=== PATIENT | female | born 1995 | race Caucasian/White ===

== ENCOUNTER 2019-02-17 03:48 | Inpatient (IN) ==
[2019-02-17] MEDS ORDERED: Naloxone 0.4 MG/ML INJ IVP PRN ×2 (03:58→08:38)
[2019-02-17] MEDS ORDERED: Metoclopramide 10 MG/2 ML VIAL IVP PRN (03:58)
[2019-02-17] MEDS ORDERED: Ondansetron 4 MG/2 ML VIAL IVP PRN ×2 (03:58→08:38)
[2019-02-17] MEDS ORDERED: *HR* Nalbuphine 10 MG/ML AMPUL IVP PRN (03:58)
[2019-02-17] MEDS ORDERED: Famotidine 20 MG/2 ML VIAL IVP PRN (03:58)
[2019-02-17] MEDS: miSOPROStol 25 MCG TABLET VG PRN ×2 (04:38→09:51)
[2019-02-17] MEDS: Ringers Solution, Lactated 1,000 ML IVC SCH ×4 (04:42→20:52)
[2019-02-17 04:53] LABS: Basophils % 0.2 %; Eosinophils # 0.1 K/mcL (0.0-0.6); Eosinophils % 0.5 %; Hematocrit 32.6 % (35.3-44.9); Hemoglobin 10.4 g/dL (11.5-15.4); Immature Granulocytes % 0.6 % (0-4); Lymphocytes % 19.6 %; Mean Corpuscular HGB Conc 31.9 g/dL (31.6-35.5); Mean Corpuscular Hemoglobin 25.9 pg (28.0-33.3); Mean Corpuscular Volume 81.3 fL (83.0-100.0); Mean Platelet Volume 11.7 fL (9.4-12.4); Monocytes # 0.7 K/mcL (0.0-1.3); Monocytes % 6.6 %; Neutrophils # 7.3 K/mcL (1.6-8.9); Platelet Count 259 K/mcL (140-400); Red Blood Count 4.01 M/mcL (3.82-4.97); Red Cell Distribution Width 15.9 % (11.5-14.5); Segmented Neutrophils % 72.5 %
--- NOTE | 2019-02-17 08:11 | OB/GYN History & Physical ---
Date of Encounter: 02/17/19 Time of Encounter: 08:07 Assessment and Plan (1) and not yet delivered in third trimester Current visit: Yes Status: Acute (2) 39 weeks gestation of Current visit: Yes Status: Acute (3) Elective induction of labor planned Current visit: Yes Status: Acute Patient was induced with a Bautista catheter and Cytotec, patient will be augmented with Pitocin if contractions space out. Plan is to anticipate normal spontaneous vaginal delivery History of Present Illness HPI: Ms. Jessica is a 23 year old female admitted to para 1 at 39-0/7 weeks who presented for induction of labor secondary with favorable cervix. Patient's had an uncomplicated course. Patient is wanting a tubal ligation paperwork has been signed however did advise that we will probably wait and do it at 6 weeks. The risks and benefits of the tubal had been previously explained to patient with failure rate of 3-5 per thousand with increased risk of ectopic if was to occur. She denies any leaking of fluid still having good movement is having occasional contractions. Patient is O+, rubella positive, GBS negative, Varicella positive Past Med Surg Social Fam HX - Past Medical History Source: patient, old records reviewed Medical history: no medical history Psychiatric history: no psych history - Past Surgical History Surgical History: no surgical history - Social History Smoking Status: Never smoker Smokeless Tobacco Status: No Alcohol use: none Drug use: none Occupational status: unemployed Current living situation: Home - Independent Activity Level: Independent ambulation Recent Out of Country Travel Within the Last 8 Weeks: No Exposure or Possible Exposure to Illness During Travel: No - Family History Mother Living Status: Still Living Hx Family Cardiac Disorders: No Hx Family Respiratory Disorders: No Hx Family Cancer: No Hx Family GI Disorders: No Hx Family Endocrine Disorder: No Hx Family Neuromuscular Disorders: No Hx Family Neurologic Disorders: No Hx Family HEENT Disorders: No Hx Family Autoimmune Disorders: No Hx Family Reproductive Disorders: No Hx Family Psychosocial Disorders: No Hx Family Medical Disorders: No - Additional Family History Additional family history: Family history noncontributory Obstetrical History - Pregnancies : 2 Para: 1 Livin Medications and Allergies Caplet 1 mg PO DAILY 11/05/18 [History] Allergy/AdvReac Type Severity Reaction Status Date / Time No Known Allergies Allergy Verified 02/17/19 04:08 Review of System OB All systems PM: reviewed and no additional remarkable complaints except as stated Exam - Constitutional Constitutional: well developed, well nourished, no acute distress, obese - HEENT HEENT: EOMI, PERRL, Mucus Membranes Moist - Neck Neck exam: full ROM - Lungs Respiratory exam: CTAB - Cardiovascular Cardiovascular exam: RRR - Abdomen Abdomen: Present: gravid ( heart tones 140s reactive occasional contractions seen) - Extremities Extremities exam: full ROM - Vagina Vagina: Present: normal moisture - Cervix Dilation: 2 Effacement: 80 Station: -1 (Bautista catheter placed 40 mL balloon inflated and 25 g of Cytotec previously placed vaginally) - Uterus Uterus exam: Present: normal size Results Result Diagrams: 02/17/19 04:14 Abnormal lab results Hgb 10.4 g/dL (11.5-15.4) L 02/17/19 04:14 Hct 32.6 % (35.3-44.9) L 02/17/19 04:14 MCV 81.3 fL (83.0-100.0) L 02/17/19 04:14 MCH 25.9 pg (28.0-33.3) L 02/17/19 04:14 RDW 15.9 % (11.5-14.5) H 02/17/19 04:14 All other labs normal. - VTE Reasons for not Prescribing Prophylaxis: Treatment not Indicated - Low risk for VTE
[2019-02-17] MEDS ORDERED: EPHEDrine 50 MG/ML VIAL IVP PRN (08:38)
[2019-02-17] MEDS ORDERED: *HR* FentaNYL (PF) 100 MCG/2 ML VIAL EP ONE (08:38)
[2019-02-17] MEDS ORDERED: Ropivacaine/PF 0.2% 20 ML VIAL EP ONE (08:38)
--- NOTE | 2019-02-17 08:44 | Anesthesia Evaluation PreOp ---
Date of Encounter: 02/17/19 Time of Encounter: 09:00 - Past History Planned Operation: BRODY Cardiac History: Denies any Significant Hx Pulmonary History: Denies Any Significant HX RETAIL RECEIVING CLERK History: Denies Any Significant HX Other Medical History: Denies Any Significant HX Anesthesia History: No Prior Anesthetic Complications, Past Anesthesia (Previous epidural, no family history of anesthetic complications.) : Yes Alcohol Use: none Drug use: none Medications and Allergies Caplet 1 mg PO DAILY 11/05/18 [History] Allergy/AdvReac Type Severity Reaction Status Date / Time No Known Allergies Allergy Verified 02/17/19 04:08 - Meds/Allergy Pre-op Review Medications Reviewed: Yes Allergies Reviewed: Yes Beta Blockers on Current Med List: No Anesthesia Results - Labs 02/17/19 04:14 Anesthesia Exam BP 121/75 P 99 R 16 T 97.2 Height: 5'5" Weight: 110.2kg NPO (# of Hours): 4 Pain Scale: 3 Pain Scale Used: Numeric (1 - 10) - HEENT Pupil (Motor): Pupils equal Mallampati: II Teeth: Normal Oral Opening: Greater than 3 - RETAIL RECEIVING CLERK LOC: Oriented RETAIL RECEIVING CLERK Motor: Normal RUE, Normal LUE, Normal RLE, Normal LLE, Normal Face RETAIL RECEIVING CLERK Sensory: Normal: RUE, LUE, RLE, LLE, Face - Cardiac Rhythm: Regular Murmur: None JVD: No Carotid Bruit: No - Pulmonary Breath Sounds: bilateral Clear Respiratory Effort: Symmetrical Anesthesia Assess/Plan ASA Score: 2 Level of consciousness: Cooperative, Oriented, Tranquil Anesthetic Plan: Epidural Autologous Blood: No Monitoring Plan: Standard Monitors Recovery Plan: Other
[2019-02-17] MEDS ORDERED: *HR* FentaNYL (PF) 100 MCG/2 ML VIAL ONE (14:32)
[2019-02-17] MEDS: Epidural Premix (fent/bupiv) 110 ML EP SCH ×2 (15:08→21:44)
--- NOTE | 2019-02-17 15:28 | Anesthesia Procedures ---
Date of Encounter: 02/17/19 Time of Encounter: 14:50 Procedures: Anesthesia - Epidural/Spinal Patient ID/Chart reviewed: Yes Patient examined: Yes OB Eval: Gestational age: 39 OB Eval: : 2 OB Eval: Hx Para: 1 OB Eval: Dilated at (cm): 4 OB Eval: Contractions: Non-stressed pattern Consent Obtained: Yes Supplemental Oxygen: None/Room Air Site Prep: Aseptic Technique, Sterile prep and drape, Povidone-Iodine 1% Patient position: upright Local Anesthetic: Lidocaine 1% Amount of Local Anesthetic used: 3 Touhy Needle Gauge: 18 Touhy Needle Depth (cm): 6 Catheter Depth at Skin (cm): 14 Test Dose (1.5% Lido + Epi): Volume given (mls): 3 Test Dose Result: Negative Loading Dose: Fentanyl (mcg): 100 Loading Dose: Other: Ropivicaine 0.2% 5ml, 3ml Normal saline Loading Dose Administered: Thru Catheter Infusion Med: 0.125% Bupivacaine w/ 2 mcg/ml Fentanyl Infusion Rate (mls/hr): [address]: Tegaderm, Tape Interspace Used: L3-L4 Loss of Resistance (LOKESH): Yes Blood: No CSF: No Paresthesia: No Procedure: BRODY placed 1st pass in upright position. LOKESH achieved with Normal saline. Catheter threaded with ease to 14cm at the skin. Test dose negative. Pt stated comfort following epidural bolus administration. VSS throughout. Vitals + FHT's: 1450 BP 150/90 P 119 R 18 1516 BP 150/80 P 102 R 16
--- NOTE | 2019-02-17 16:09 | OB Labor Progress Note ---
Date of Encounter: 02/17/19 Time of Encounter: 16:07 Labor Progress Note - Subjective Subjective: Patient resting comfortably with epidural in place. - Vital Signs Vital Signs: WNL - Cervix Cervix: 5-6/90/-1 - Heart Tones Heart Tones: FHR 120 bpm, moderate variability, no accels, no decels. - Axson Axson: Q 3-4 minutes - Interventions Interventions: SVE AROM for moderate amount of clear fluid. IUPC inserted for accurate contraction monitoring. - Plan Physician notified: Yes Physician notified details: Dr. Hurley notified of SVE & AROM Plan: Begin Pitocin augmentation when able Frequent position changes with peanut ball Insert FSE if needed for tracing difficulties Anticipate
[2019-02-17] MEDS ORDERED: Oxytocin 20 units/ LR 1000 mL 20 UNIT/1,000 ML BAG IVC ONE (16:47)
[2019-02-17] MEDS ORDERED: Acetaminophen 325 MG TABLET PO PRN ×2 (17:32→22:48)
--- NOTE | 2019-02-17 17:51 | OB Labor Progress Note ---
Date of Encounter: 02/17/19 Time of Encounter: 17:50 Labor Progress Note - Subjective Subjective: Patient still very comfortable with epidural not feeling contractions at this time. - Cervix Cervix: 6/90/-1 - Heart Tones Heart Tones: heart tones 140s reactive - [place]: Contractions every 3-4 minutes irregular will continue to increase Pitocin - Interventions Interventions: Continued increasing Pitocin plan is to anticipate vaginal delivery
--- NOTE | 2019-02-17 20:35 | OB Labor Progress Note ---
Date of Encounter: 02/17/19 Time of Encounter: 20:34 Labor Progress Note - Subjective Subjective: Patient still comfortable beginning to feel some vaginal pressure - Cervix Cervix: 7/80/+1 - Heart Tones Heart Tones: heart tones 140s reactive - [place]: Contractions every 2 minutes - Interventions Interventions: Continue current care anticipate vaginal delivery
--- NOTE | 2019-02-17 22:43 | OB/GYN Procedure Note ---
Delivery - Delivery Date: 02/17/19 Provider: Memo Hurley Intrapartum events: none Delivery induction: coello, misoprostol Delivery augmentation: rupture of membranes, pitocin Delivery monitor: external FHT, internal uterine Anesthesia: intravenous Quantitated Blood Loss: 100 - (s) Infant A Infant Delivery Date: 02/17/19 Delivery Time: 22:09 Presentation: vertex Position: ELEAZAR Route of delivery: Gender: Female Viability: Viable Pounds: 6 Ounces: 12 Weight Gram: 3.065 kg at 1 minute: 8 at 5 mins: 9 Shoulder Dystocia: not encountered Specimens collected: cord blood Placenta: spontaneous Cord: 3 umbilical vessels - Repair Episiotomy: none Laceration Description: Labial (right) - Complications Delivery complications: none Delivery comments: Patient is a 23-year-old 2 para 1 at 39-0/7 weeks who presented for induction of labor secondary to term with favorable cervix. Patient did require Coello catheter and Cytotec to get labor going catheter fell out approximately 4 hours later. Epidural was placed she was artificially ruptured clear fluid was noted she was 4-5 cm. Patient progressed slowly but appropriately patient became complete and pushed approximately 2 times delivering a viable female infant in left occiput anterior presentation at 2209. There was no nuchal cord, no meconium, the was bulb suctioned the abdomen. Apgars were 8 at 1 minute, 9 at 5 minutes, infant weight was 6 lbs. 12 oz. Placenta was delivered spontaneously 3 vessel cord, route sales manager Dr. Hurley, administrative assistant receptionist Celestino Mora OMS3, anesthesia epidural, estimated blood loss 100 mL. Perineum cervix and vagina was visualized intact she did have a right labial laceration repaired with 3-0 Vicryl in a running locking stitch. Patient tolerated the delivery well she will be observed one to 2 hours then transferred to the floor. - Disposition Mom disposition: stable in LDR [place] disposition: stable in LDR
[2019-02-17] MEDS ORDERED: *HR* HYDROcodone/Acet 5/325 mg TABLET PO PRN (22:48)
[2019-02-17] MEDS ORDERED: Oxytocin 20 units/ LR 1000 mL 20 UNIT/1,000 ML BAG IVC SCH (22:48)
[2019-02-18] MEDS: Ibuprofen 600 MG TABLET PO PRN ×3 (01:10→15:30)
[2019-02-18 07:01] LABS: Basophils % 0.2 %; Eosinophils % 0.4 %; Hemoglobin 10.1 g/dL (11.5-15.4); Immature Granulocytes % 0.4 % (0-4); Lymphocytes # 1.4 K/mcL (0.6-4.6); Lymphocytes % 12.7 %; Mean Corpuscular HGB Conc 31.6 g/dL (31.6-35.5); Mean Corpuscular Volume 82.3 fL (83.0-100.0); Monocytes # 0.8 K/mcL (0.0-1.3); Monocytes % 6.7 %; Platelet Count 225 K/mcL (140-400); Red Blood Count 3.89 M/mcL (3.82-4.97); Red Cell Distribution Width 16.1 % (11.5-14.5); Segmented Neutrophils % 79.6 %; White Blood Count 11.3 K/mcL (4.3-11.1)
[2019-02-18] MEDS ORDERED: Prenatal Vit/FA 1 EACH TABLET PO SCH (09:00)
[2019-02-18] MEDS ORDERED: PRENATAL 1 MG PO SCH (09:00)
[2019-02-18 15:36] VITALS: BP 121/88
--- NOTE | 2019-02-18 17:44 | Discharge Summary ---
Date of Encounter: 02/18/19 Time of Encounter: 09:30 - Discharge Diagnosis (1) Vaginal delivery Priority: Primary Status: Acute Comments: Feeling well Tolerating regular diet Pain well-controlled with by mouth pain meds Ambulating independently Voiding independently Lochia light Passing flatus, no BM yet Vital signs stable Discharge home today (2) Breast feeding status of mother Priority: Secondary Status: Acute Comments: Community resources provided - Discharge Medications Prescriptions: New Acetaminophen [Tylenol] 650 mg PO Q6HR PRN tablet PRN Reason: Mild Pain Ibuprofen [Motrin] 600 mg PO Q6HR PRN #30 tablet PRN Reason: Cramping Docusate [Colace] 100 mg PO BID #30 capsule Continued Caplet 1 mg PO DAILY Home Medications: Caplet 1 mg PO DAILY 11/05/18 [History] Acetaminophen [Tylenol] 650 mg PO Q6HR PRN tablet 02/18/19 [Rx] Docusate [Colace] 100 mg PO BID #30 capsule 02/18/19 [Rx] Ibuprofen [Motrin] 600 mg PO Q6HR PRN #30 tablet 02/18/19 [Rx] Allergies/Adverse Reactions: Allergy/AdvReac Type Severity Reaction Status Date / Time No Known Allergies Allergy Verified 02/17/19 04:08 Data Procedures and tests throughout hospitalization: Laboratory Tests 02/17/19 02/18/19 04:14 06:33 WBC 10.0 11.3 H RBC 4.01 3.89 Hgb 10.4 L 10.1 L Hct 32.6 L 32.0 L MCV 81.3 L 82.3 L MCH 25.9 L 26.0 L MCHC 31.9 31.6 RDW 15.9 H 16.1 H Plt Count 259 225 MPV 11.7 11.0 Immature Gran % 0.6 0.4 Seg Neutrophils % 72.5 79.6 Lymphocytes % 19.6 12.7 Monocytes % 6.6 6.7 Eosinophils % 0.5 0.4 Basophils % 0.2 0.2 Neutrophils # 7.3 9.0 H Lymphocytes # 2.0 1.4 Monocytes # 0.7 0.8 Eosinophils # 0.1 0.0 Basophils # 0.0 0.0 Labs on day of discharge: Labs from last 24 hours 02/18/19 06:33 WBC 11.3 H RBC 3.89 Hgb 10.1 L Hct 32.0 L MCV 82.3 L MCH 26.0 L MCHC 31.6 RDW 16.1 H Plt Count 225 MPV 11.0 Immature Gran % 0.4 Seg Neutrophils % 79.6 Lymphocytes % 12.7 Monocytes % 6.7 Eosinophils % 0.4 Basophils % 0.2 Neutrophils # 9.0 H Lymphocytes # 1.4 Monocytes # 0.8 Eosinophils # 0.0 Basophils # 0.0 Date of admission: 02/17/19 03:48 Primary care physician: PCP NONE Consults: 02/17/19 22:48 Consult to Central Communications Specialist [CONS] Routine Comment: Vaginal delivery, consult needed Discharging clinician: Radha Simms Anticipated date of discharge: 02/18/19 - Patient Status Disposition: Home, Self-Care Condition: Good Functional capacity at discharge: independent ambulation Overall status at discharge: patient is progressing back to baseline - Discharge Instructions Follow Up With: NONE,PCP [Primary Care Provider] - Memo Hurley DO [Partnered Physician] - - Diet and Activity Activity: increase activity as tolerated Diet: regular diet Hospital Course Reason for admission: induction of labor, IUP at term Delivery: Episiotomy: none Laceration: none Other procedures: none complications: none Discharge diagnosis: IUP at term delivered baby: female Time Attestation: Total time spent providing and/or coordinating discharge services: Time Spent: Less than 30 minutes Exam - Constitutional Vitals: Temp Pulse Resp BP Pulse Ox 97.6 F 92 14 121/88 99 02/18/19 15:31 02/18/19 15:31 02/18/19 15:36 02/18/19 15:31 02/18/19 15:31 General appearance IM: A&O X 3, morbidly obese, pleasant, no acute distress, answers questions appropriately - Respiratory Respiratory exam: Present: CTAB - Cardiovascular Cardiovascular exam IM: Present: RRR, +S1, +S2 - GI/Abdominal GI/Abdominal exam IM: normal bowel sounds, no peritoneal signs - Rectal Rectal exam: deferred - Uterine Tone: Firm Uterus Position: At Umbilicus, Midline - Extremities Exam Extremities exam IM: Present: full ROM, normal capillary refill, normal inspection, radial pulses palpable and symmetrical - Neurological Exam Neurological exam: alert, oriented X3, strengths equal and symetr throughout - Psychiatric Additional comments: Signs and symptoms of depression discussed with patient and partner and both verbalized understanding of when to seek help
== END 2019-02-18 22:45 | disposition home or self-care (01) | DRG 560 ==
LOC: 1NENULAB 03:48 → 1NENUOBS 02-18 00:33
PROVIDERS: ADMIT Obstetrics & Gynecology; ATTEND Obstetrics & Gynecology